=== PATIENT | female | born 1970 | race Caucasian/White ===

== ENCOUNTER 2018-06-26 10:05 | Emergency (ER) | payer MEDICAID ==
[~2018-06-26] VITALS: Ht 152.4 cm; Wt 62.0 kg
[2018-06-26 10:25] VITALS: BP 120/84
[2018-06-26] MEDS ORDERED: VALA10002 PO (10:26)
[2018-06-26] MEDS ORDERED: SULF1TAB49 PO (10:26)
== END 2018-06-26 10:35 | disposition home or self-care (01) ==
LOC: ER 10:06
DX: B00.1 Herpesviral vesicular dermatitis (principal)
CPT/HCPCS: 99283